=== PATIENT | female | born 1990 | race Caucasian/White ===

== ENCOUNTER 2017-05-05 09:11 | Outpatient (CLI) | payer SELFPAY ==
[~2017-05-05] VITALS: Ht 167.6 cm; Wt 9.4 kg
[2017-05-05 09:18] VITALS: Ht 167.6 cm; Wt 9.4 kg
[2017-05-05 09:19] VITALS: BP 131/61
[2017-05-05] MEDS ORDERED: PREN1TAB17 PO (09:21)
[2017-05-05 10:20] LABS: ADD SCAN DIFF NO
[2017-05-05 10:27] LABS: BASOPHILS % 0.3 % (0.0-2.0); EOSINOPHILS # 0.1 10^3/ul (0.0-0.5); EOSINOPHILS % 0.7 % (0.0-7.0); HEMATOCRIT 32.3 % (37.0-47.0); HEMOGLOBIN 10.4 g/dl (12.0-16.0); LYMPHOCYTES # 1.7 10^3/ul (0.8-2.9); LYMPHOCYTES % 16.3 % (15.0-51.0); MEAN CORPUSCULAR HEMOGLOBIN 29.4 pg (29.0-33.0); MEAN CORPUSCULAR HGB CONC 32.2 g/dl (32.0-37.0); MEAN CORPUSCULAR VOLUME 91.2 fl (82.0-101.0); MEAN PLATELET VOLUME 11.3 fl (7.4-10.4); MONOCYTE # 0.9 10^3/ul (0.3-0.9); MONOCYTES % 8.8 % (0.0-11.0); NEUTROPHIL # 7.5 10^3/ul (1.6-7.5); NEUTROPHILS % 72.8 % (39.0-77.0); PLATELET COUNT 236 10^3/UL (140-415); RED BLOOD COUNT 3.54 10^6/ul (4.20-5.40); RED CELL DISTRIBUTION WIDTH 15.1 % (11.5-14.5); WHITE BLOOD COUNT 10.3 10^3/ul (4.8-10.8)
[2017-05-05 10:43] LABS: INR 1.03; PARTIAL THROMBOPLASTIN TIME 27.5 Sec (25.0-35.0); PROTIME 13.5 Sec (12.2-14.2); PT RATIO 1.1
--- NOTE | 2017-05-05 11:07 | RADRPT ---
PROCEDURE: US biophysical profile. CLINICAL INDICATION: Contractions at 38 weeks gestational age. TECHNIQUE: Multiple sonographic images of the uterus were obtained. The images were revi ewed on a PACS workstation. COMPARISON: No prior studies are available for comparison. FINDINGS: There is a single live intrauterine gestation. heart rate is 148 beats per minute. The position is cephalic. The placenta is anterior grade 2 with no abruption or previa. The SANNA is 10.5 cm. (Normal = 5-20 cm.) Breathing Movement: 2 Gross Body Movement: 2 Tone: 2 Qualitative Amniotic Fluid Volume: 2 TOTAL: 8 IMPRESSION: 1. The biophysical score is 8/8. RPTAT: QQ .Hakeem Sharif MD, MD Date Time Electronically viewed and signed by .Hakeem Sharif MD, on 05/05/2017 11:06 .R/
--- NOTE | 2017-05-05 12:17 | CONS ---
Date/Time of Note Date/Time of Note DATE: 05/05/17 TIME: 12:09 Consultation Date/Type/Reason Admit Date/Time May 05, 2017 OB triage consult Reason for Consultation This patient is a 26 years old 5 2 para 2 with estimated date of confinement of May 15, 2017 which makes her 38 weeks and 4 days. She says she is living in [facility] and came from there today complaining of abdominal , contraction and nausea. On examination she is a well-developed well-nourished patient near at term. Her ear nose throat appears to be normal. Abdomen is soft she has very rare contractions. heart tone appears to be normal On her general examination ; her blood pressure is 101/63, pulse rate about 50, respiration 15, temperature 97.1. Laboratory Tests Test 05/05/17 09:50 White Blood Count 10.310^3/ul Red Blood Count 3.5410^6/ul Hemoglobin 10.4g/dl Hematocrit 32.3% Mean Corpuscular Volume 91.2fl Mean Corpuscular Hemoglobin 29.4pg Mean Corpuscular Hemoglobin Concent 32.2g/dl Red Cell Distribution Width 15.1% Platelet Count 88629^3/UL Mean Platelet Volume 11.3fl Neutrophils % 72.8% Lymphocytes % 16.3% Monocytes % 8.8% Eosinophils % 0.7% Basophils % 0.3% Nucleated Red Blood Cells % 0.0/100WBC Neutrophils # 7.510^3/ul Lymphocytes # 1.710^3/ul Monocytes # 0.910^3/ul Eosinophils # 0.110^3/ul Basophils # 0.010^3/ul Nucleated Red Blood Cells # 0.010^3/ul Prothrombin Time 13.5Sec Prothrombin Time Ratio 1.1 INR International Normalized Ratio 1.03 Activated Partial Thromboplast Time 27.5Sec Constitutional: No chills, No diaphoresis, No disoriented, No febrile, No improved, No no complaints, No other, No poor po, No requiring IVF, No requiring O2 Eyes: No discharge, No no complaints, No other, No pain, No redness, No visual change ENT: No bleeding, No congestion, No discharge, No dysphagia, No no complaints, No other, No pain, No sore throat Respiratory: No cough, No no complaints, No other, No pain, No pleuritic pain, No shortness of breath, No sputum, No wheezing Cardiovascular: No chest pain, No edema, No lightheadedness, No no complaints, No orthopenea, No other, No palpitations, No paroxysmal nocturnal dyspnea Gastrointestinal: other (No CVA tenderness), No blood, No constipation, No decreased appetite, No diarrhea, No flatus, No nausea, No no complaints, No pain, No passing stool, No vomiting Genitourinary: other (On pelvic examination her cervix is about 2-3 cm 80% effaced at -2 station with intact), No bleeding, No discharge, No dysuria, No flank pain, No hematuria, No no complaints Musculoskeletal: No back pain, No bone/joint pain, No neck pain, No no complaints, No other, No restricted range of motion, No swelling Skin: No bruising, No erythema, No laceration, No no complaints, No other, No pruritis, No rash, No skin lesions Neurologic: No confusion, No dizziness, No focal-weakness, No headache, No no complaints, No other, No seizure, No syncope Endocrine: No dry skin, No no complaints, No other, No polydypsia, No polyuria , No temp intolerance Additional Comments Due to lack of previous obstetrical workup we did some blood work as well as an ultrasound . Her urinalysis is basically normal. She has mild anemia with hemoglobin of 10.4 hematocrit 32.3 however the rest of CBC is normal. Her blood type is O Rh+,. PT and PTT are normal. On ultrasound study the report it is a single live intrauterine gestation with heart rate of 148 beats per minutes in vertex presentation ,placenta was anterior, her SANNA was 10.5 cm the biophysical profile was reported 05/24. Disposition. We did not see any contractions after moderate hydration , heart tone was normal, for this reason the pelvic exam was not repeated. She was discharged home with advice to find an stock holder and be under care of physician . end of dictation Social History Smoking Status: Former smoker Exam/Review of Systems Vital Signs Vitals Vital Signs Date Time Temp Pulse Resp B/P Pulse Ox O2 Delivery O2 Flow Rate FiO2 05/05/17 09:19 98.7 131/61 Room Air Results Result Diagram: 05/05/17 0950 Results 24 hrs Laboratory Tests Test 05/05/17 09:50 White Blood Count 10.3 Red Blood Count 3.54 L Hemoglobin 10.4 L Hematocrit 32.3 L Mean Corpuscular Volume 91.2 Mean Corpuscular Hemoglobin 29.4 Mean Corpuscular Hemoglobin Concent 32.2 Red Cell Distribution Width 15.1 H Platelet Count 236 Mean Platelet Volume 11.3 H Neutrophils % 72.8 Lymphocytes % 16.3 Monocytes % 8.8 Eosinophils % 0.7 Basophils % 0.3 Nucleated Red Blood Cells % 0.0 Neutrophils # 7.5 Lymphocytes # 1.7 Monocytes # 0.9 Eosinophils # 0.1 Basophils # 0.0 Nucleated Red Blood Cells # 0.0 Prothrombin Time 13.5 Prothrombin Time Ratio 1.1 INR International Normalized Ratio 1.03 Activated Partial Thromboplast Time 27.5 DAISY RODRIGUEZ MD May 05, 2017 12:16
--- NOTE | 2017-05-05 12:37 | TRIAGE ---
OB Triage Datetime Report Generated by CPN: 05/05/2017 12:37 Datetime: 05/05/2017 11:27 Labor Evaluation Frequency: 0 Monitor Mode: External Heart Rate FHR Baseline Rate: 145 Monitor Mode: External US Variability: Moderate 6-25 bpm Accelerations: 15X15 Decelerations: None Category: Category I Datetime: 05/05/2017 10:42 Monitor Mode: External Pattern: Normal: <= 5 Contractions in 10 Minutes Resting Tone Hatley: Relaxed Heart Rate FHR Baseline Rate: 150 Monitor Mode: External US Variability: Moderate 6-25 bpm Accelerations: 15X15 Decelerations: None Category: Category I Pain Assessment Pain Scale: 7 Pain Presence: Intermittent Pain Type: Contraction; Ache Pain Location: Abdomen Pain Goal: 0 Pain Relief Measures: Comfort Measures Datetime: 05/05/2017 10:31 Comments: US AT BEDSIDE Datetime: 05/05/2017 09:26 Vaginal Exam Dilatation (cms): 3.0 Effacement (%): 80 Station: -2 Exam By: SJason HILLS Datetime: 05/05/2017 09:23 Stage of : OB Triage Assessment Type: Triage Maternal Assessment Level of Consciousness: Fully Conscious DTR's/Clonus: DTRs 2+; No Clonus Headache: Denies Blurred Vision: No Respiratory Effort: Unlabored; Regular Rhythm; Equal Expansion Breath Sounds, Left: Clear and Equal Breath Sounds, Right: Clear and Equal Nausea/Vomiting: Present RUQ Epigastric Pain: Denies Lower Extremities Edema: None Degree: None Upper Extremities Edema: None Degree: None Facial Edema: None Temperature Route: Oral Fall Risk Assessment History of Falling: (0) No Secondary Diagnosis: (0) No Ambulatory Aid: (0) Bedrest/Nurse Assist IV Therapy: (0) No Gait: (0) Normal/Bedrest/Immobile Mental Status: (0) Oriented to Own Ability Fall Score: 0 Fall Risk Score Definition: No Risk: No action required Monitor Mode: External Heart Rate FHR Baseline Rate: 155 Monitor Mode: External US Variability: Moderate 6-25 bpm Accelerations: 15X15 Decelerations: None Category: Category I Pain Assessment Pain Scale: 7 Pain Presence: Intermittent Pain Type: Cramping; Contraction Pain Location: Abdomen Pain Goal: 0 Datetime: 05/05/2017 09:22 Time of Arrival: 05/05/2017 09:05 EGA: 38.4 Arrived By: Wheelchair Arrived From: Home Chief Complaint: UC'S, PAIN, VOMMITNG Movement: Present Contractions: Irregular Rupture of Membranes: Denies Vaginal Bleeding: None Vaginal Discharge: Denies Recent Sexual Intercouse: Denies Abdominal Trauma: Not Applicable Patient Complaints: Contractions; Vomiting Additional Patient Complaints: EFMX2, NST Time Provider Notified: 05/05/2017 09:44 Provider Notified: DR. RODRIGUEZ
[2017-05-07 10:10] LABS: RUBELLA ANTIBODY - IGG 1.94 index
== END 2017-05-05 12:44 | disposition home or self-care (01) ==
LOC: OBT 09:11 → L-D 09:12 → OBT 12:44
DX: O62.9 Abnormality of forces of labor, unspecified (principal); O21.0 Mild hyperemesis gravidarum; Z3A.38 38 weeks gestation of pregnancy
CPT/HCPCS: 76818; 85025; 85610; 85730; 86592; 86762; 86900; 86901; 87340; G0463